=== PATIENT | female | born 1985 | race Caucasian/White ===

== ENCOUNTER 2018-12-20 10:07 | Emergency (ER) | payer OTHER ==
[~2018-12-20] VITALS: Ht 162.6 cm; Wt 95.2 kg
[2018-12-20 10:48] LABS: Source, Urine Clean Catch
[2018-12-20 10:57] LABS: Bilirubin, Urine Neg (Neg); Blood, Urine Neg (Neg); Glucose Qualitative, Urine Neg (Neg); Ketones, Urine Neg (Neg); Leukocyte Esterase, Urine Neg (Neg); Nitrite, Urine Neg (Neg); Protein, Urine Neg (Neg); Specific Gravity, Urine 1.015 (1.003-1.022); Urobilinogen, Urine NORM (Normal)
[2018-12-20 11:04] LABS: Appearance, Urine Clear (Clear); Color, Urine Yellow (P-Yellow)
[2018-12-20] MEDS ORDERED: ONDA4ODT MM (11:09)
== END 2018-12-20 11:20 | disposition home or self-care (01) ==
LOC: ER 10:07
PROVIDERS: Physician Assistant
DX: O21.9 Vomiting of pregnancy, unspecified (principal); Z3A.17 17 weeks gestation of pregnancy; O99.89 Other specified diseases and conditions complicating pregnancy, childbirth and the puerperium; R19.7 Diarrhea, unspecified; O99.332 Smoking (tobacco) complicating pregnancy, second trimester; F17.200 Nicotine dependence, unspecified, uncomplicated
CPT/HCPCS: 81003; 96374; 99284-25; J2405; J7030

== ENCOUNTER → 2019-03-07 | Outpatient (CLI) | payer OTHER ==
[~2019-03-07] MED LIST: ONDA4ODT MM
[2019-03-07 12:48] LABS: Hematocrit 37.1 % (33.0-51.0); Hemoglobin 12.1 g/dL (11.5-16.0)
== END | disposition home or self-care (01) ==
LOC: LAB SHORT 11:30 → LAB 11:30
PROVIDERS: Obstetrics & Gynecology
DX: Z34.80 Encounter for supervision of other normal pregnancy, unspecified trimester (principal)
CPT/HCPCS: 82950; 85014; 85018

== ENCOUNTER → 2019-05-02 | Outpatient (CLI) | payer OTHER ==
[~2019-05-02] MED LIST changes: +CEPH500 PO; +CYCL10 PO; +Colace100 MG PO; +IBUP800; +METO10 PO; +NICO21TP TOP; +Norco 5-325 Ta1 EACH PO; +PNV-DHA SOFTGE1 EACH PO; +Percocet 5-3251 EACH PO
== END | disposition home or self-care (01) ==
LOC: LAB SHORT 10:26 → LAB 10:26
DX: O09.529 Supervision of elderly multigravida, unspecified trimester (principal)
CPT/HCPCS: 87081; 87653

== ENCOUNTER 2019-05-21 06:01 | Inpatient (IN) | payer OTHER ==
[2019-05-20 13:40] LABS: BASOPHILS ABSOLUTE AUTO 0.04 K/mm3 (0.00-0.23); BASOPHILS PERCENT AUTO 0 % (0-2); EOSINOPHILS PERCENT AUTO 1 % (0-6); Hematocrit 35.9 % (33.0-51.0); Hemoglobin 11.9 g/dL (11.5-16.0); IMMATURE GRAN PERCENT AUTO 1 % (0-1); LYMPHOCYTES PERCENT AUTO 15 % (21-46); MONOCYTES ABSOLUTE AUTO 0.95 K/mm3 (0.16-1.47); MONOCYTES PERCENT AUTO 7 % (4-13); Mean Corpuscular HGB 29.9 pg (26.0-34.0); Mean Corpuscular HGB Conc 33.1 g/dL (31.5-36.5); Mean Corpuscular Volume 90 fL (80-100); Mean Platelet Volume 12.2 fL (9.1-12.4); NEUTROPHILS ABSOLUTE AUTO 10.23 K/mm3 (1.96-9.15); NEUTROPHILS PERCENT AUTO 76 % (41-73); Platelet Count 203 K/mm3 (150-400); RDW Coefficient Variation 13.2 % (11.7-14.2); RDW Standard Deviation 43.7 fL (35.1-46.3); Red Blood Cell Count 3.98 M/mm3 (3.80-5.20); White Blood Cell Count 13.42 K/mm3 (4.00-11.30)
[~2019-05-21] VITALS: Ht 162.6 cm; Wt 103.2 kg
[~2019-05-21 06:01] MED LIST changes: -Colace100 MG PO; -IBUP800; -Percocet 5-3251 EACH PO
--- NOTE | 2019-05-21 08:10 | NUR ---
05/21/19 0810 Cassandra Pradhan IV INFILTRATED IN OR PRIOR TO SURGERY START. 20 G PLACED BY ANNE MARIE.[facility] IN LEFT FA AFTER 2 ATTEMPTS. DELIVERY OF VIABLE FEMALE APGARS 9/9, WEIGHT 3605 AT 0758. CORD BLOOD SAMPLE AND CORD SEGMENT SENT WITH BABY RN ANNE MARIE.[email or web address]
--- NOTE | 2019-05-21 10:17 | NUR ---
MED FLOOR RN MALCOLM NOEL CAME DOWN AND USED US GUIDED FOR PLACEMENT, DECLINED POWERGLIDE PLACEMENT. PT HAD 4 PREVIOS ATTEMPTS BY FLOOR RN'S ON PRVIOUS SHIFT.
--- NOTE | 2019-05-21 10:19 | NUR ---
ASSUMED CARE AT 0720, STILL NO IV PLACEMENT, MEDICAL FLOOR ON THEIR WAY DOWN SOON. PLAN R C/S. REPORT TO BRIDGET JOHN. IV HAS JUST INFILTRATED, THIS IS THE 2 ONE TO BLOW, IV WAS ATTEMPTED BY IN OR, WON'T FLUSH. ANOTEHR PLACED BY RN 20 G L FA, IT JUST BLEW. CALL TO ICU FOR POWERGLIDE PLACEMENT.
--- NOTE | 2019-05-21 11:14 | NUR ---
1000- ASSUMED PT CARE. ROSALINDA CARE DONE. PT DENIES PAIN. ABLE TO MAEW. C/O ITCHING. ICE WATER AND WASH CLOTHES PROVIDED FOR PT TO PAT SKIN FOR COMFORT. IV INFILATRATED. ICU/MEDICAL FLOOR CHARGE NURSES CALLED FOR IV PLACEMENT, POSSIBLE USE OF POWERGLYDE. PT VISITING WITH FAMILY AND FRIENDS. NO COMPLAINTS OTHER THAN ITCHING. PT DESIRES TO GO OUTSIDE TO SMOKE. REFUSES YAZAN PATCH. DISCUSSED THAT PT WOULD NOT BE ALLOWED TO GO OUTSIDE UNTIL IV ACCESS FOR PT SAFETY. PT CONSENTS.
--- NOTE | 2019-05-21 11:15 | NUR ---
OR IV START, 1ST ATTEMPT BY DR JENKINS, UNSUCCESSFUL RT FOREARM
--- NOTE | 2019-05-21 11:20 | NUR ---
1100, RNS FROM MEDICAL FLOOR HERE TO PLACE IV ACCESS
--- NOTE | 2019-05-21 11:55 | NUR ---
ROSALINDA CARE DONE. PT TRANSFERRED TO W/C PER PT REQUEST. PLANS TO GO OUTSIDE TO SMOKE ONCE FAMILY ARRIVES. DAVONTE BEING OOB WELL. C/O PAIN
--- NOTE | 2019-05-21 12:47 | NUR ---
OUTSIDE TO SMOKE VIA W/C WITH HER MOM.
--- NOTE | 2019-05-21 14:24 | NUR ---
ROSALINDA CARE DONE.
[2019-05-22 05:34] LABS: Hematocrit 30.5 % (33.0-51.0); Hemoglobin 10.1 g/dL (11.5-16.0); Mean Corpuscular HGB 30.1 pg (26.0-34.0); Mean Corpuscular HGB Conc 33.1 g/dL (31.5-36.5); Mean Corpuscular Volume 91 fL (80-100); Platelet Count 155 K/mm3 (150-400); RDW Coefficient Variation 13.4 % (11.7-14.2); RDW Standard Deviation 44.4 fL (35.1-46.3); Red Blood Cell Count 3.35 M/mm3 (3.80-5.20); White Blood Cell Count 13.43 K/mm3 (4.00-11.30)
--- NOTE | 2019-05-22 12:49 | NUR ---
Pt resting in bed after being out to smoke. Denies needs at this time. Records release request sent to hospital in [place] regarding labs drawn during early .
[2019-05-23 02:06] LABS: HBSAG SCREEN Negative (Negative)
[2019-05-23] MEDS ORDERED: Colace100 MG PO (09:56)
[2019-05-23] MEDS ORDERED: IBUP800 (09:57)
[2019-05-23] MEDS ORDERED: Percocet 5-3251 EACH PO (09:58)
--- NOTE | 2019-05-23 10:45 | NUR ---
Printed d/c instructions and teaching reviewed w/pt. Questions answered to her satsifaction.
--- NOTE | 2019-05-23 11:25 | NUR ---
Call received from [facility] regarding positive RPR. MD and general pediatrician notified immediately as pt was almost in her car for discharge. Pt asked to return to unit for further evaluation and testing.
[2019-05-23 11:26] LABS: RPR Reactive (Nonreactive)
--- NOTE | 2019-05-23 18:31 | NUR ---
Pt will be discharged to [facility] as previously ordered by MD when her mother returns with prescriptions. NO acute changes this shift.
--- NOTE | 2019-05-23 19:13 | NUR ---
No acute changes t/o shift. Pt d/c'd to boarder status.
[2019-05-25 21:05] LABS: HIV SCREEN 4TH GENERATION WRFX Non Reactive (Non Reactive)
== END 2019-05-23 19:10 | disposition home or self-care (01) | DRG 787 ==
LOC: BC 06:01
PROVIDERS: ADMIT Obstetrics & Gynecology
PROC: 10D00Z1 Extraction of Products of Conception, Low, Open Approach (ICD-10-PCS; principal; 2019-05-21 07:30)
DX: O34.211 Maternal care for low transverse scar from previous cesarean delivery (principal); O98.42 Viral hepatitis complicating childbirth; Z3A.39 39 weeks gestation of pregnancy; Z37.0 Single live birth; O99.334 Smoking (tobacco) complicating childbirth; F17.200 Nicotine dependence, unspecified, uncomplicated; B19.20 Unspecified viral hepatitis C without hepatic coma; O99.214 Obesity complicating childbirth; E66.9 Obesity, unspecified; Z68.39 Body mass index [BMI] 39.0-39.9, adult
CPT/HCPCS: 36415; 85025; 85027; 85460; 86592; 86593; 86762; 86780; 86850; 86900; 86901; 87340; 87389; 90471; C1751; J0690; J1885; J2590; J2765; J3010; J7120

== ENCOUNTER 2019-06-05 00:21 | Day surgery (SDC) | payer OTHER ==
[~2019-06-05 00:21] MED LIST changes: +Colace100 MG PO; +IBUP800; +Percocet 5-3251 EACH PO
== END 2019-06-05 16:05 | disposition home or self-care (01) ==
LOC: ATC 00:21
DX: O99.89 Other specified diseases and conditions complicating pregnancy, childbirth and the puerperium (principal); R76.8 Other specified abnormal immunological findings in serum; Z79.899 Other long term (current) drug therapy
CPT/HCPCS: 36415; 81001; 85025; 87077; 87086; 87186; 96372; J0561

== ENCOUNTER 2019-06-12 00:11 | Day surgery (SDC) | payer OTHER | END 2019-06-12 14:20 | disposition home or self-care (01) | LOC: ATC 00:11 | DX: O99.89 Other specified diseases and conditions complicating pregnancy, childbirth and the puerperium (principal); R76.8 Other specified abnormal immunological findings in serum; Z79.899 Other long term (current) drug therapy | CPT/HCPCS: 96372; J0561 ==

== ENCOUNTER 2021-06-12 16:56 | Inpatient (IN) | payer OTHER ==
[~2021-06-12] VITALS: Ht 162.6 cm; Wt 105.9 kg
[2021-06-12 17:28] LABS: BASOPHILS PERCENT AUTO 0 % (0-2); EOSINOPHILS PERCENT AUTO 0 % (0-6); Hematocrit 42.5 % (33.0-51.0); IMMATURE GRAN ABSOLUTE AUTO 0.36 K/mm3 (0.00-0.10); IMMATURE GRAN PERCENT AUTO 1 % (0-1); LYMPHOCYTES ABSOLUTE AUTO 1.51 K/mm3 (0.84-5.20); LYMPHOCYTES PERCENT AUTO 4 % (21-46); MONOCYTES ABSOLUTE AUTO 2.42 K/mm3 (0.16-1.47); MONOCYTES PERCENT AUTO 7 % (4-13); Mean Corpuscular HGB Conc 32.9 g/dL (31.5-36.5); Mean Corpuscular Volume 79 fL (80-100); Mean Platelet Volume 10.5 fL (9.1-12.4); NEUTROPHILS ABSOLUTE AUTO 30.75 K/mm3 (1.96-9.15); NEUTROPHILS PERCENT AUTO 88 % (41-73); Platelet Count 312 K/mm3 (150-400); RDW Coefficient Variation 14.7 % (11.7-14.2); Red Blood Cell Count 5.38 M/mm3 (3.80-5.20); White Blood Cell Count 35.14 K/mm3 (4.00-11.30)
[2021-06-12 17:55] LABS: Alanine Aminotransfer (ALT/SGP 32 U/L (12-78); Albumin, Blood 3.7 g/dL (3.4-5.0); Albumin/Globulin Ratio 0.8 (0.8-1.8); Alk Phos 91 U/L (50-136); Anion Gap 5 mmol/L (6-16); Aspartate Aminotrans (AST/SGOT 17 U/L (12-37); Bilirubin, Total 0.9 mg/dL (0.1-1.0); Blood Urea Nitrogen 8 mg/dL (8-24); CO2, Blood 23 mmol/L (21-32); Calcium, Blood 9.2 mg/dL (8.5-10.1); Chloride, Blood 101 mmol/L (98-108); Creatinine, Blood 0.61 mg/dL (0.40-1.00); Globulin, Blood 4.4 g/dL (2.2-4.0); Glomerular Filtration Rate >60 (60-); Glucose, Blood 114 mg/dL (70-99); Sodium, Blood 129 mmol/L (136-145); Total Protein, Blood 8.1 g/dL (6.4-8.2)
--- NOTE | 2021-06-13 03:39 | NUR ---
ADMISSION PT ARRIVED TO MED UNIT FROM ER, TRANSPORTED VIA ER GURNEY BY ER INTEGRATED CIRCUIT FABRICATOR. PT AMBULATED WITH 1 PERSON STAFF ASSIST TO MED UNIT BED. IV IN LFA, FLUSHED AND STARTED IV FLUIDS PER ORDER. PT CONNECTED TO TELEMETRY, SINUS RHYTHM AT 86 PER SCOOP OPERATOR. PT ON ROOM AIR, SATING ABOVE 92%. LUNG SOUNDS DIMINISHED. PT DROWSY, HAVING A HARD TIME STAYING AWAKE TO ANSWER QUESTIONS FOR ADMISSION HISTORY. WOUND ON RIGHT LOWER QUADRANT OF ABD WALL CLEANSED WITH DERMAL WOUND CLEANSER, COVERED WITH MEPILEX. CALL LIGHT WITHIN REACH, WILL CONTINUE TO MONITOR.
[2021-06-13 05:04] LABS: BASOPHILS ABSOLUTE AUTO 0.07 K/mm3 (0.00-0.23); BASOPHILS PERCENT AUTO 0 % (0-2); EOSINOPHILS ABSOLUTE AUTO 0.02 K/mm3 (0.00-0.68); EOSINOPHILS PERCENT AUTO 0 % (0-6); Hematocrit 43.7 % (33.0-51.0); IMMATURE GRAN ABSOLUTE AUTO 0.18 K/mm3 (0.00-0.10); IMMATURE GRAN PERCENT AUTO 1 % (0-1); LYMPHOCYTES ABSOLUTE AUTO 2.61 K/mm3 (0.84-5.20); LYMPHOCYTES PERCENT AUTO 10 % (21-46); MONOCYTES ABSOLUTE AUTO 2.07 K/mm3 (0.16-1.47); MONOCYTES PERCENT AUTO 8 % (4-13); Mean Corpuscular HGB 26.2 pg (26.0-34.0); Mean Corpuscular Volume 82 fL (80-100); Mean Platelet Volume 10.7 fL (9.1-12.4); NEUTROPHILS ABSOLUTE AUTO 22.18 K/mm3 (1.96-9.15); NEUTROPHILS PERCENT AUTO 82 % (41-73); Platelet Count 248 K/mm3 (150-400); RDW Standard Deviation 44.6 fL (35.1-46.3); Red Blood Cell Count 5.35 M/mm3 (3.80-5.20); White Blood Cell Count 27.13 K/mm3 (4.00-11.30)
--- NOTE | 2021-06-13 05:35 | NUR ---
PHONE CALL TO DR Murray PLACED PHONE CALL TO DR. PENA. PT C/O MIGRAINE HEADACHE. CIRILO REPORTS THAT AT HOME SHE TREATS MIGRAINES WITH EXCEDERIN. RN OFFERED TYLENOL, WHICH IS OFFERED, PT REFUSED STATING THAT THE TYLENOL WON'T ALLEVIATE THE PAIN. DR. PENA WITH ORDERS FOR EXCEDERIN, 1 TABLET TID PRN FOR MIGRAINE. ORDERS UPDATED.
--- NOTE | 2021-06-13 05:37 | NUR ---
SHIFT SUMMARY PT CONTINUED TO SLEEP MOST OF THE NIGHT. CALLED APPROPRIATELY FOR ASSISTANCE TO THE BATHROOM AND HELP NAVIGATING IV POLES AND TUBING. CONTINUED WITH TELEMETRY MONITORING. ROOM AIR. CALL LIGHT IN PLACE, WILL CONTINUE TO MONITOR.
[2021-06-13 05:38] LABS: Alanine Aminotransfer (ALT/SGP 28 U/L (12-78); Albumin, Blood 3.2 g/dL (3.4-5.0); Albumin/Globulin Ratio 0.7 (0.8-1.8); Alk Phos 90 U/L (50-136); Anion Gap 7 mmol/L (6-16); Aspartate Aminotrans (AST/SGOT 12 U/L (12-37); Bilirubin, Total 0.9 mg/dL (0.1-1.0); Blood Urea Nitrogen 7 mg/dL (8-24); Bun/Creatinine Ratio 9.9 (12.0-20.0); CO2, Blood 23 mmol/L (21-32); Calcium, Blood 8.8 mg/dL (8.5-10.1); Chloride, Blood 101 mmol/L (98-108); Creatinine, Blood 0.71 mg/dL (0.40-1.00); Globulin, Blood 4.5 g/dL (2.2-4.0); Glomerular Filtration Rate >60 (60-); Glucose, Blood 125 mg/dL (70-99); Potassium, Blood 3.4 mmol/L (3.5-5.5); Sodium, Blood 131 mmol/L (136-145); Total Protein, Blood 7.7 g/dL (6.4-8.2)
--- NOTE | 2021-06-13 18:16 | NUR ---
SHIFT SUMMARY. A&OX4, LEATHARGIC MOST OF THE SHIFT, MORE ALERT THIS EVENING AFTER SHOWER. WOUND TO RLQ ABD CLEANSED, REPACKED WITH IODAFORM, AND COVERED WITH MEPILEX, PT TOLERATED WELL. SIGNIFICANT OTHER IN TO VISIT THIS AFTERNOON. NO NEW CHANGES OR CONCERNS.
[2021-06-13 19:56] LABS: Vancomycin, Trough 16.9 ug/mL (5.0-10.0)
--- NOTE | 2021-06-14 05:15 | NUR ---
SHIFT SUMMARY AT BEGINNING OF SHIFT, PT WAS ANXIOUS AND TEARFUL STATING THAT SHE DIDN'T WANT HER BOYFRIEND TO LEAVE BECAUSE SHE THOUGHT "SOMETHING BAD WAS GOING TO HAPPEN." AFTER BOYFRIEND LEFT, PT SPENT THE REST OF THE NIGHT SLEEPING. SHE RECEIVED 1 PRN TRAMADOL FOR GENERALIZED PAIN. IV INFUSING ANTIBIOTICS IN LEFT AC. AT 0500 PT REFUSED LAB DRAW AFTER LAB STAFF WERE UNSUCCESSFUL IN TWO ATTEMPTS TO DRAW BLOOD. PT TOLD THE LAB TO LEAVE HER ALONE, AND SHE REFUSED LABS. PLAN IS TO WAIT A COUPLE HOURS AND RE-TRY. VSS. PT IS ABLE TO MAKE NEEDS KNOWN. AMBULATES TO THE BATHROOM VIA 1 STAFF ASSIST TO MANAGE IV TUBING AND IV POLES. WILL CONTINUE TO MONITOR.
[2021-06-14 07:43] LABS: BASOPHILS ABSOLUTE AUTO 0.06 K/mm3 (0.00-0.23); BASOPHILS PERCENT AUTO 0 % (0-2); EOSINOPHILS ABSOLUTE AUTO 0.24 K/mm3 (0.00-0.68); EOSINOPHILS PERCENT AUTO 1 % (0-6); Hemoglobin 10.9 g/dL (11.5-16.0); IMMATURE GRAN ABSOLUTE AUTO 0.14 K/mm3 (0.00-0.10); IMMATURE GRAN PERCENT AUTO 1 % (0-1); LYMPHOCYTES ABSOLUTE AUTO 2.04 K/mm3 (0.84-5.20); LYMPHOCYTES PERCENT AUTO 11 % (21-46); MONOCYTES ABSOLUTE AUTO 1.09 K/mm3 (0.16-1.47); MONOCYTES PERCENT AUTO 6 % (4-13); Mean Corpuscular HGB 26.2 pg (26.0-34.0); Mean Corpuscular HGB Conc 32.1 g/dL (31.5-36.5); Mean Corpuscular Volume 82 fL (80-100); Mean Platelet Volume 10.6 fL (9.1-12.4); NEUTROPHILS ABSOLUTE AUTO 14.91 K/mm3 (1.96-9.15); NEUTROPHILS PERCENT AUTO 81 % (41-73); Platelet Count 268 K/mm3 (150-400); RDW Coefficient Variation 14.9 % (11.7-14.2); RDW Standard Deviation 44.9 fL (35.1-46.3); Red Blood Cell Count 4.16 M/mm3 (3.80-5.20); White Blood Cell Count 18.48 K/mm3 (4.00-11.30)
[2021-06-14 08:04] LABS: Anion Gap 4 mmol/L (6-16); Blood Urea Nitrogen 9 mg/dL (8-24); CO2, Blood 25 mmol/L (21-32); Calcium, Blood 8.2 mg/dL (8.5-10.1); Chloride, Blood 107 mmol/L (98-108); Creatinine, Blood 0.69 mg/dL (0.40-1.00); Glomerular Filtration Rate >60 (60-); Glucose, Blood 112 mg/dL (70-99); Potassium, Blood 3.6 mmol/L (3.5-5.5); Sodium, Blood 136 mmol/L (136-145)
[2021-06-14] MEDS ORDERED: CLIN150 PO (14:41)
--- NOTE | 2021-06-14 16:04 | NUR ---
1330 PT REPORTED THAT HER IV WAS BURNING APPROXIMATELY 10 MINUTES AFTER IV VANCO STARTED. PT REFUSED NEW IV START AND REQUESTED TO BE D/C'D. PT EDUCATED ON RISKS OF D/C PRIOR TO COMPLETED DR. PRESCRIBED AMOUNT OF IV ABX, PT ACKNOWLEDGED UNDERSTANDING AND REQUESTED TO BE D/C'D ANYWAY. DR. CLAY NOTIFIED AND RECIEVED ORDERS. IV REMOVED. 1544 PT DISCHARGED HOME VIA PERSONAL VEHICLE ACCOMPANIED AND DRIVEN BY SIG OTHER. D/C INSTRUCTIONS REVIEWED WITH PT AND COPY PROVIDED. NEW RX FAXED TO [facility] PER PT REQUEST, PT INSTRUCTED TO COMPLETE ENTIRE ABX COURSE, RETURN TO ER OR CALL PCP IF SYMPTOMS PERSIST OR WORSEN. PT INSTRUCTED TO CALL PCP TUESDAY FOR FOLLOW UP APPOINTMENT THIS WEEK. DRESSING TO [facility] ABD CHANGED AFTER CLEANSING, PACKING WAS NOT REPLACED PT DID NOT FEEL COMFORTABLE MANAGING THIS AT HOME. PT GIVEN ONE WEEK OF BANDAGES, WOUND CLEANSER, AND STERILE 4X4 GUAZE. PT INSTRUCTED ON DAILY DRESSING CHANGES DURING WOUND CARE, PT ACKOWLEDGED UNDERSTANDING. PT ESCORTED TO ENTRANCE VIA W/C BY NOHELIA.
== END 2021-06-14 15:45 | disposition home or self-care (01) | DRG 872 ==
LOC: ER 16:56 → MEDS 23:00
PROVIDERS: Internal Medicine; Physician Assistant; ADMIT Internal Medicine
PROC: 0H97XZZ Drainage of Abdomen Skin, External Approach (ICD-10-PCS; principal; 2021-06-12)
DX: A41.9 Sepsis, unspecified organism (principal); L03.311 Cellulitis of abdominal wall; L02.211 Cutaneous abscess of abdominal wall; Z68.41 Body mass index [BMI] 40.0-44.9, adult; E87.1 Hypo-osmolality and hyponatremia; Z98.890 Other specified postprocedural states; E87.6 Hypokalemia; E66.01 Morbid (severe) obesity due to excess calories; F15.10 Other stimulant abuse, uncomplicated
CPT/HCPCS: 10060; 36415; 74177; 80048; 80053; 80202; 83605; 84703; 85025; 87040; 87147; 93005; 93010; 96365-59; 96366-59; 96367-59; 96372; 96375-59; 99285-25; A9270; J1650; J2543; J3010; J3370; J7030; J7050; Q9967

== ENCOUNTER → 2021-11-16 | Outpatient (CLI) | payer OTHER ==
[~2021-11-16] MED LIST changes: +CLIN150 PO
== END | disposition home or self-care (01) ==
LOC: LAB 15:28 → LAB SHORT 15:28
DX: N39.0 Urinary tract infection, site not specified (principal)
CPT/HCPCS: 87077; 87086; 87186

== ENCOUNTER → 2022-10-23 | Outpatient (CLI) | payer OTHER ==
[~2022-10-23] MED LIST changes: +METF500 PO; +OXYC5 PO; +SUMA25 PO; +TOPI100 PO
== END | disposition home or self-care (01) ==
LOC: LAB SHORT 13:05
DX: T81.40XA Infection following a procedure, unspecified, initial encounter (principal)
CPT/HCPCS: 87070; 87075; 87077; 87147; 87186; 87205

== ENCOUNTER → 2024-09-19 | Outpatient (CLI) | payer OTHER ==
[2024-10-03 07:48] LABS: HPV HIGH RISK BY TMA Not Detected; HPV SOURCE Cervical
== END ==
LOC: LAB 16:57 → LAB SHORT 16:57
PROVIDERS: Family Medicine
DX: Z12.4 Encounter for screening for malignant neoplasm of cervix (principal)
CPT/HCPCS: 87624; G0123